=== PATIENT | male | born 1940 | race Caucasian/White ===

== ENCOUNTER 2017-06-24 05:26 | Emergency (ER) | payer OTHER ==
[~2017-06-24] VITALS: Ht 154.9 cm; Wt 86.2 kg
[~2017-06-24 05:26] MED LIST: ACTOS 45 MG45 M2 PO; ALEVE220 MG PO; AMLODIPINE-BEN1 EAC2 PO; ASPIRIN325 PO; CENTRUM SILVER1 EAC4 PO; GLIPIZIDE ER10 MG PO; HYDROCODONE-AP1 EAC6 PO; LEVOTHYROXINE137 MCG PO; LIPITOR80 MG PO; METFORMIN HCL1000 MG PO; NEURONTIN 300300 M1 PO; PLAVIX 75 MG TA75 M1 PO; PRILOSEC 20 MG20 MG PO; SENOKOT-S TABL1 EACH PO; ZANTAC 150MG T150 MG PO
[2017-06-24 05:59] LABS: URINE BILIRUBIN NEGATIVE (Negative); URINE BLOOD TRACE (Negative); URINE CLARITY CLEAR; URINE COLOR YELLOW; URINE GLUCOSE-RANDOM* NEGATIVE (Negative); URINE KETONES NEGATIVE (Negative); URINE LEUKOCYTES NEGATIVE (Negative); URINE NITRITE NEGATIVE (Negative); URINE PROTEIN (DIPSTICK) NEGATIVE (Negative); URINE SPECIFIC GRAVITY 1.015 (1.005-1.035); URINE UROBILINOGEN 0.2 E.U./dl (0.2-1.0)
[2017-06-24 06:05] LABS: ABSOLUTE NEUTROPHILS 5.2 thou/uL (1.4-8.2); BASOPHILS 0.3 % (0.0-2.0); EOSINOPHILS 2.2 % (0.0-3.0); HEMATOCRIT 40.5 % (42.0-52.0); LYMPHOCYTES 9.6 % (24.0-44.0); MCH 30.1 pg (26.0-34.0); MCHC 33.8 g/dL (28.0-37.0); MCV 89.2 fL (80.0-100.0); MONOCYTES 9.1 % (1.0-8.0); PLATELET COUNT 177 thou/uL (150-400); POLYS 78.8 % (36.0-66.0); RBC 4.54 mil/uL (4.50-6.00); RDW 14.2 % (10.5-14.5); WBC 6.6 thou/uL (4.0-11.0)
[2017-06-24 06:09] LABS: HEMOGLOBIN 13.7 gm/dL (14.0-18.0)
[2017-06-24 06:11] LABS: CALCIUM 8.8 mg/dL (8.5-10.1); CREATININE 0.8 mg/dL (0.7-1.3); POTASSIUM 3.3 mmol/L (3.5-5.1)
[2017-06-24] MEDS ORDERED: FLOMAX0.4 MG PO (06:23)
== END 2017-06-24 06:53 | disposition home or self-care (01) ==
LOC: ER 05:26
PROVIDERS: Emergency Medicine
DX: R33.9 Retention of urine, unspecified (principal); I10 Essential (primary) hypertension; E78.5 Hyperlipidemia, unspecified; E03.9 Hypothyroidism, unspecified; E11.9 Type 2 diabetes mellitus without complications; K21.9 Gastro-esophageal reflux disease without esophagitis; Z90.49 Acquired absence of other specified parts of digestive tract; Z87.891 Personal history of nicotine dependence

== ENCOUNTER 2017-06-27 21:43 | Emergency (ER) | payer OTHER ==
[~2017-06-27] VITALS: Ht 154.9 cm; Wt 86.2 kg
[~2017-06-27 21:43] MED LIST changes: +FLOMAX0.4 MG PO
[2017-06-27] MEDS ORDERED: AMOX TR-K CLV1 EAC4 PO (23:17)
== END 2017-06-27 23:44 | disposition home or self-care (01) ==
LOC: ER 21:43
DX: T83.098A Other mechanical complication of other urinary catheter, initial encounter (principal); I10 Essential (primary) hypertension; E78.5 Hyperlipidemia, unspecified; E03.9 Hypothyroidism, unspecified; E11.9 Type 2 diabetes mellitus without complications; K21.9 Gastro-esophageal reflux disease without esophagitis; Z90.49 Acquired absence of other specified parts of digestive tract; Z87.891 Personal history of nicotine dependence; Y84.8 Other medical procedures as the cause of abnormal reaction of the patient, or of later complication, without mention of misadventure at the time of the procedure; Y92.89 Other specified places as the place of occurrence of the external cause

== ENCOUNTER 2017-06-29 18:50 | Inpatient (IN) | payer OTHER ==
[~2017-06-29] VITALS: Ht 154.9 cm; Wt 86.2 kg
[~2017-06-29 18:50] MED LIST changes: +AMOX TR-K CLV1 EAC4 PO
[2017-06-29 18:59] VITALS: BP 153/65
[2017-06-29 21:53] LABS: BASOPHILS 0.5 % (0.0-2.0); CALCIUM 9.2 mg/dL (8.5-10.1); CREATININE 0.7 mg/dL (0.7-1.3); EOSINOPHILS 2.3 % (0.0-3.0); HEMATOCRIT 37.9 % (42.0-52.0); HEMOGLOBIN 12.8 gm/dL (14.0-18.0); LYMPHOCYTES 12.7 % (24.0-44.0); MCH 29.7 pg (26.0-34.0); MCHC 33.8 g/dL (28.0-37.0); MCV 87.9 fL (80.0-100.0); MONOCYTES 9.3 % (1.0-8.0); PLATELET COUNT 217 thou/uL (150-400); POLYS 75.2 % (36.0-66.0); RBC 4.32 mil/uL (4.50-6.00); RDW 14.2 % (10.5-14.5); WBC 6.6 thou/uL (4.0-11.0)
[2017-06-29 21:55] VITALS: BP 112/70
[2017-06-29 22:01] LABS: APTT 27.1 Seconds (24.5-32.8); PROTIME 9.9 Seconds (9.3-11.4)
[2017-06-29 22:26] VITALS: BP 127/68
[2017-06-30] MEDS ORDERED: PLAVIX 75 MG TA75 M1 PO (03:05)
[2017-06-30 04:08] VITALS: BP 137/58
[2017-06-30 07:27] VITALS: BP 151/77
[2017-06-30 16:00] VITALS: BP 136/77
[2017-07-01 05:16] LABS: CALCIUM 8.4 mg/dL (8.5-10.1); CREATININE 0.6 mg/dL (0.7-1.3); POTASSIUM 3.5 mmol/L (3.5-5.1)
[2017-07-01 05:46] LABS: HEMATOCRIT 34.1 % (42.0-52.0); HEMOGLOBIN 11.6 gm/dL (14.0-18.0); MCHC 34.1 g/dL (28.0-37.0); RBC 3.88 mil/uL (4.50-6.00); RDW 13.8 % (10.5-14.5); WBC 5.7 thou/uL (4.0-11.0)
[2017-07-01 08:00] VITALS: BP 130/63
[2017-07-01 16:30] VITALS: BP 130/65
[2017-07-01 21:00] VITALS: BP 125/73
[2017-07-02 05:00] VITALS: BP 130/69
[2017-07-02 06:12] LABS: HEMATOCRIT 32.9 % (42.0-52.0); HEMOGLOBIN 11.3 gm/dL (14.0-18.0); MCH 30.2 pg (26.0-34.0); MCHC 34.2 g/dL (28.0-37.0); MCV 88.3 fL (80.0-100.0); RBC 3.73 mil/uL (4.50-6.00); RDW 13.9 % (10.5-14.5)
[2017-07-02 06:28] LABS: ALBUMIN 2.8 g/dL (3.4-5.0); CALCIUM 8.5 mg/dL (8.5-10.1); CREATININE 0.6 mg/dL (0.7-1.3); POTASSIUM 3.7 mmol/L (3.5-5.1)
[2017-07-02 20:00] VITALS: BP 110/56
[2017-07-03 04:00] VITALS: BP 125/70
[2017-07-03 08:15] VITALS: BP 131/98
[2017-07-03 17:46] VITALS: BP 99/61
[2017-07-03 20:00] VITALS: BP 117/57
[2017-07-04 05:30] VITALS: BP 147/66
[2017-07-04 08:30] VITALS: BP 144/66
[2017-07-04 16:46] VITALS: BP 120/59
[2017-07-04 20:30] VITALS: BP 137/67
[2017-07-05 06:00] VITALS: BP 138/60
[2017-07-05 06:17] LABS: HEMATOCRIT 34.1 % (42.0-52.0); HEMOGLOBIN 11.7 gm/dL (14.0-18.0); MCH 29.9 pg (26.0-34.0); MCHC 34.3 g/dL (28.0-37.0); MCV 87.1 fL (80.0-100.0); RBC 3.92 mil/uL (4.50-6.00); RDW 14.2 % (10.5-14.5); WBC 6.1 thou/uL (4.0-11.0)
[2017-07-05 08:00] VITALS: BP 114/58
[2017-07-05] MEDS ORDERED: CIPRO500 MG PO (10:27)
[2017-07-05] MEDS ORDERED: PAIN & FEVER325 MG PO (10:27)
[2017-07-05] MEDS ORDERED: FINASTERIDE5 MG PO (10:28)
[2017-07-05] MEDS ORDERED: RAPAFLO8 MG PO ×2 (10:28→10:31)
[2017-07-05] MEDS ORDERED: LIDOCAINE 2%2 %/5 GM TOP (10:31)
[2017-07-05 11:05] VITALS: BP 114/58
== END 2017-07-05 13:39 | disposition home or self-care (01) | DRG 695 ==
LOC: ER 18:50 → EROBS 21:44 → 4E 21:44
PROVIDERS: Emergency Medicine; Hospitalist; Nurse Practitioner Acute Care
DX: R31.0 Gross hematuria (principal); E43 Unspecified severe protein-calorie malnutrition; R33.9 Retention of urine, unspecified; I10 Essential (primary) hypertension; E78.5 Hyperlipidemia, unspecified; I25.10 Atherosclerotic heart disease of native coronary artery without angina pectoris; E03.9 Hypothyroidism, unspecified; E11.9 Type 2 diabetes mellitus without complications; K21.9 Gastro-esophageal reflux disease without esophagitis; Z90.49 Acquired absence of other specified parts of digestive tract; Z95.5 Presence of coronary angioplasty implant and graft; Z98.42 Cataract extraction status, left eye; Z68.35 Body mass index [BMI] 35.0-35.9, adult; Z87.891 Personal history of nicotine dependence; Z98.41 Cataract extraction status, right eye; Z79.02 Long term (current) use of antithrombotics/antiplatelets; Z79.84 Long term (current) use of oral hypoglycemic drugs; Z79.82 Long term (current) use of aspirin; Z79.899 Other long term (current) drug therapy
CPT/HCPCS: 10084; 50454

== ENCOUNTER → 2019-04-12 | Outpatient (CLI) | payer MEDICARE ==
[~2019-04-12] MED LIST changes: +CIPRO500 MG PO; +FINASTERIDE5 MG PO; +LIDOCAINE 2%2 %/5 GM TOP; +PAIN & FEVER325 MG PO; +RAPAFLO8 MG PO
== END ==
LOC: SJCVC 13:08
DX: R94.31 Abnormal electrocardiogram [ECG] [EKG] (principal); I25.10 Atherosclerotic heart disease of native coronary artery without angina pectoris; E11.9 Type 2 diabetes mellitus without complications; E78.00 Pure hypercholesterolemia, unspecified; I10 Essential (primary) hypertension; I65.23 Occlusion and stenosis of bilateral carotid arteries; Z79.899 Other long term (current) drug therapy; Z87.891 Personal history of nicotine dependence

== ENCOUNTER → 2019-07-06 | Outpatient (CLI) | payer OTHER | LOC: SJCVCIMAG 05-18 15:06 | DX: I25.10 Atherosclerotic heart disease of native coronary artery without angina pectoris (principal); I49.3 Ventricular premature depolarization; I10 Essential (primary) hypertension; E78.5 Hyperlipidemia, unspecified; E11.9 Type 2 diabetes mellitus without complications; Z87.891 Personal history of nicotine dependence; Z79.899 Other long term (current) drug therapy ==

== ENCOUNTER → 2019-07-14 | Outpatient (CLI) | payer OTHER ==
[~2019-07-14] MED LIST changes: +ASA81BEC PO; +COZAAR 25 MG TA25 M1 PO; +JARDIANCE25 MG PO; +LEVOXYL125 MCG PO; +OMEPRAZOLE40 MG PO; +VICTOZA0.6 MG/0.1 SUBQ
== END ==
LOC: SJCVC 13:49
PROVIDERS: ATTEND Internal Medicine Cardiovascular Disease
DX: R94.31 Abnormal electrocardiogram [ECG] [EKG] (principal); I25.10 Atherosclerotic heart disease of native coronary artery without angina pectoris; E11.9 Type 2 diabetes mellitus without complications; I25.5 Ischemic cardiomyopathy; I10 Essential (primary) hypertension; I65.23 Occlusion and stenosis of bilateral carotid arteries; E78.00 Pure hypercholesterolemia, unspecified; R94.39 Abnormal result of other cardiovascular function study; R42 Dizziness and giddiness; Z79.82 Long term (current) use of aspirin; Z79.899 Other long term (current) drug therapy; Z82.49 Family history of ischemic heart disease and other diseases of the circulatory system; Z87.891 Personal history of nicotine dependence

== ENCOUNTER → 2019-07-18 | Outpatient (CLI) | payer OTHER ==
[~2019-07-18] VITALS: Ht 152.4 cm; Wt 74.8 kg
[2019-07-18 09:12] LABS: HEMATOCRIT 41.2 % (42.0-52.0); HEMOGLOBIN 13.3 gm/dL (14.0-18.0); MCH 24.6 pg (26.0-34.0); MCHC 32.3 g/dL (28.0-37.0); RBC 5.42 mil/uL (4.50-6.00); WBC 5.1 thou/uL (4.0-11.0)
[2019-07-18 09:22] LABS: CALCIUM 8.9 mg/dL (8.5-10.1); CREATININE 0.9 mg/dL (0.7-1.3); POTASSIUM 4.8 mmol/L (3.5-5.1)
[2019-07-18 09:27] VITALS: BP 132/58
--- NOTE | 2019-07-18 18:25 | CATHLAB ---
[facility] [place] [address] [place] [address] INVASIVE PROCEDURE REPORT Name: DONNA BENSON Room #: REG LUCIANO Patel.#: [id number] Admission: 07/18/19 Attend Phys: Vijay Curtis MD, Discharge: Date of : 42 Report #: [id number] THIS REPORT FOR: cc: Shane Nye Louis D. DO Mancuso, Gerald M. MD [facility] ~ APPROVED REPORT Study performed: 07/18/2019 09:50:00 Patient Details Patient Status: In-Patient Room #: The patient is a 79 year-old male Event Personnel Vijay Curtis Stock Room Manager, Germán Mac Partnoy, Nancy RTR, DIRECTOR OF LITIGATION Monitor, Gabbie Sanchez RN RN, Cristóbal Buenrostro RN product development manager Performed Art Access - R femoral artery* Left Heart Cath w/or w/o Coronaries [id number] [facility] Renal Bilateral Peripheral Angiography, Abdominal Aortagram; [id number] CVRENALBIL 13093 Initial Mod Sed Same Phys/QHP Gr5y [id number] Indication Positive stress test Procedure Narrative The Right Groin^ was infiltrated with 1% Lidocaine subcutaneous anesthesia. A PINNACLE 6FR Sheath #[id number] sheath was inserted into the RFA^. Coronary angiography was performed using coronary diagnostic catheters. The right coronary system was accessed and visualized with a JR4 catheter. The left coronary system was accessed and visualized with a JL4 catheter. The left ventricle was accessed and visualized with a pigtail catheter. Left ventriculogram was performed in 30 degree projection. An aortogram of the abdominal aorta was performed. Pre-demployment femoral angiogram was performed . Closure device was deployed with a 6 Fr MYNXGRIP 6/7F #[id number]. The patient tolerated the procedure well and there were no complications associated with the procedure. There was no hematoma. Intraoperative Conscious Sedation Sedation start time: 10:49 Case end Time: [facility] [address] [place] [address] INVASIVE PROCEDURE REPORT Name: MARCELINODONNA Ortiz Room #: [facility]#: [id number] Admission: 07/18/19 Attend Phys: Vijay Curtis, Discharge: Date of : 42 Report #: [id number] 11:12 Fentanyl 50 mcg Versed 2.0 mg Fluoro Time: 1.56 minutes Dose: DAP 2876.20 cGycm2 331 mGy Contrast Type and Amount: Omnipaque 135 ml Hemodynamics The aortic pressure is 124/62 mmHg with a mean of 85 mmHg. The left ventricular pressure is 135/0 mmHg with a mean of mmHg. The left ventricular end diastolic pressure is 20 mmHg. Conclusion #1. Normal left ventricular size with inferior basilar hypokinesis EF 45 to 50% range. #2 abdominal aortogram is mild aortic ectasia but no aneurysm formation. Renal arteries appear mildly diseased. #3 left main mild irregularity giving rise to LAD and circumflex. #4 LAD proximal calcification but this is a well-preserved vessel extends around the apex no occlusive disease diagonal system moderate distribution. Collateral filling from the septals to the PDA of the occluded RCA are noted. #5 circumflex OM nondominant calcified ostial lesion of 60 to 70% mid vessel lesion 60 to 70% this is proximal to a previously placed mid OM stent. We will treat this medically. Heavy calcification and minimal distribution. 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 This is unchanged from prior cath. #6 selective injection of bilateral ostial renal arteries have mild diffuse disease and mild calcification but no occlusive renal artery stenosis is noted. Recommendations and plan: Continue aggressive risk factor modification. No indication for coronary intervention. Nuclear stress testing is consistent with the above findings. Will follow discharge protocol. <ELECTRONICALLY SIGNED> By: Vijay Curtis MD, [facility] 07/18/191822 22 22 Vijay Curtis MD, FACC /INF
--- NOTE | 2019-07-19 07:57 | EKG ---
[facility] [address] [place] [address] ELECTROCARDIOGRAM REPORT Name: DONNA BENSON Room #: [facility]#: [id number] Admission: 07/18/19 Attend Phys: Vijay Curtis MD, Discharge: Date of : 42 Report #: [id number] THIS REPORT FOR: cc: Shane Nye,Jayy Grullon MD [facility] ~ THIS REPORT FOR: //name// [facility] Test Date: 2019-07-18 Test Time: 08:50:58 Pat Name: DONNA BENSON Department: Room: Gender: Form Grader: Kiarra JONES : 1940 Requested By: Vijay Curtis Order Number: [id number] MD: Jayy Keen Measurements Intervals [place] Rate: 75 P: 15 CA: 176 QRS: 38 QRSD: 117 T: -6 QT: 369 QTc: 413 Interpretive Statements Sinus rhythm Nonspecific intraventricular conduction delay Compared to ECG 06/21/2017 14:51:31 ST (T wave) deviation no longer present Electronically Signed On 07-19-2019 7:54:59 CDT by Jayy Keen [email or web address] <ELECTRONICALLY SIGNED> By: Jayy Keen MD, [facility] 07/19/19 0754 0850 0850 Jayy Keen MD, [facility] /EPI
== END | disposition home or self-care (01) ==
LOC: CATH 08:21
PROVIDERS: Internal Medicine Cardiovascular Disease
DX: R94.39 Abnormal result of other cardiovascular function study (principal); I25.10 Atherosclerotic heart disease of native coronary artery without angina pectoris; I70.1 Atherosclerosis of renal artery; I77.811 Abdominal aortic ectasia; I10 Essential (primary) hypertension; E78.5 Hyperlipidemia, unspecified; E03.9 Hypothyroidism, unspecified; E11.9 Type 2 diabetes mellitus without complications; I42.9 Cardiomyopathy, unspecified; I25.2 Old myocardial infarction; K21.9 Gastro-esophageal reflux disease without esophagitis; Z98.890 Other specified postprocedural states; Z79.899 Other long term (current) drug therapy; Z90.49 Acquired absence of other specified parts of digestive tract; Z98.41 Cataract extraction status, right eye; Z98.42 Cataract extraction status, left eye; Z82.49 Family history of ischemic heart disease and other diseases of the circulatory system; Z87.891 Personal history of nicotine dependence; Z79.82 Long term (current) use of aspirin

== ENCOUNTER → 2020-02-27 | Outpatient (CLI) | payer OTHER | LOC: SJCVC 13:24 | PROVIDERS: ATTEND Internal Medicine Cardiovascular Disease | DX: R94.31 Abnormal electrocardiogram [ECG] [EKG] (principal); I25.10 Atherosclerotic heart disease of native coronary artery without angina pectoris; I10 Essential (primary) hypertension; E78.00 Pure hypercholesterolemia, unspecified; E11.9 Type 2 diabetes mellitus without complications; I25.5 Ischemic cardiomyopathy; Z87.891 Personal history of nicotine dependence; Z90.49 Acquired absence of other specified parts of digestive tract; Z98.890 Other specified postprocedural states ==

== ENCOUNTER → 2021-02-26 | Outpatient (CLI) | payer MEDICARE | LOC: SJCVCIMAG 06:21 | PROVIDERS: ATTEND Internal Medicine Cardiovascular Disease | DX: Z01.810 Encounter for preprocedural cardiovascular examination (principal); I42.9 Cardiomyopathy, unspecified; I25.89 Other forms of chronic ischemic heart disease; R06.00 Dyspnea, unspecified; C67.9 Malignant neoplasm of bladder, unspecified; I25.10 Atherosclerotic heart disease of native coronary artery without angina pectoris; E11.9 Type 2 diabetes mellitus without complications; E78.00 Pure hypercholesterolemia, unspecified; I10 Essential (primary) hypertension; Z95.818 Presence of other cardiac implants and grafts; Z82.49 Family history of ischemic heart disease and other diseases of the circulatory system; Z87.891 Personal history of nicotine dependence; Z79.84 Long term (current) use of oral hypoglycemic drugs; Z79.82 Long term (current) use of aspirin; Z79.899 Other long term (current) drug therapy ==